=== PATIENT | female | born 1995 | race Hispanic/Latino ===

== ENCOUNTER 2023-10-14 19:31 | Emergency (ER) | payer BC, OTHER ==
[~2023-10-14] VITALS: Ht 154.9 cm; Wt 58.1 kg
[~2023-10-14 19:31] MED LIST: FERR-82 PO; OMEG-116 PO; PREN1TAB80 PO
[2023-10-14 20:02] VITALS: BP 125/75; PULSE 82; RESP 18
[2023-10-14 21:05] LABS: APPEARANCE,URINE CLEAR (CLEAR); BILIRUBIN,URINE NEGATIVE (NEGATIVE); COLOR,URINE LIGHT-YELLOW (YELLOW); GLUCOSE, URINE (UA) NEGATIVE (NEGATIVE); KETONES,URINE NEGATIVE (NEGATIVE); LEUKOCYTE ESTERASE ,URINE NEGATIVE Leu/uL (NEGATIVE); NITRATE,URINE NEGATIVE (NEGATIVE); OCCULT BLOOD,URINE NEGATIVE (NEGATIVE); PH,URINE 6.5 (5.0-8.0); PROTEIN,URINE NEGATIVE (NEGATIVE); UROBILINOGEN,URINE 0.2 mg/dL (0.2-1.0)
[2023-10-14 21:07] LABS: HCG,QUALITATIVE URINE NEGATIVE (NEGATIVE)
[2023-10-14 21:09] LABS: ADD UA MICROSCOPIC NO
[2023-10-14 21:31] LABS: BASOPHILS # (AUTO) 0.06 K/uL (0.00-0.20); BASOPHILS % (AUTO) 0.8 % (0.0-5.0); EOSINOPHILS # (AUTO) 0.12 K/uL (0.00-0.70); EOSINOPHILS % (AUTO) 1.6 % (0.0-8.0); HEMATOCRIT 38.3 % (36-48); IMMATURE GRANULOCYTE ABSOLUTE 0.02 K/uL (0-1); LYMPHOCYTES # (AUTO) 1.8 K/uL (1.0-4.8); MEAN CORPUSCULAR HEMOGLOBIN 29.9 pg (27.0-33.0); MEAN CORPUSCULAR HGB CONC 34.5 g/dL (32.0-36.0); MEAN CORPUSCULAR VOLUME 86.7 fL (79-99); MONOCYTES # (AUTO) 0.7 K/uL (0.1-1.0); MONOCYTES % (AUTO) 8.7 % (3.0-13.0); NEUTROPHILS # (AUTO) 4.8 K/uL (1.8-7.7); NEUTROPHILS % (AUTO) 64.6 % (40.0-77.0); PLATELET COUNT (AUTO) 145 K/uL (130-400); RED BLOOD CELL COUNT(AUTO) 4.42 MIL/uL (4.00-5.50); RED CELL DISTRIBUTION WIDTH 12.8 % (11.0-15.5); WHITE BLOOD COUNT (AUTO) 7.5 K/uL (4.8-10.8)
[2023-10-14 21:43] LABS: CREATININE 0.8 mg/dL (0.5-1.0); POTASSIUM 3.4 mmol/L (3.5-5.1)
[2023-10-14 21:47] LABS: BILIRUBIN,TOTAL 0.5 mg/dL (0.2-1.0); TOTAL PROTEIN, SERUM 7.3 g/dL (6.0-8.3)
[2023-10-14] MEDS: ACETAMINOPHEN 325 MG TAB PO ONE (22:48)
== END 2023-10-14 22:59 | disposition home or self-care (01) ==
LOC: EDH 19:31
DX: R10.31 Right lower quadrant pain (principal)
CPT/HCPCS: 36415; 76856; 80053; 81003; 81025; 83690; 85025

== ENCOUNTER 2024-06-27 23:55 | Emergency (ER) | payer MEDICAID, OTHER ==
[~2024-06-27] VITALS: Ht 154.9 cm; Wt 59.0 kg
[2024-06-27 23:56] VITALS: BP 126/82
--- NOTE | 2024-06-27 23:57 | NUR ---
UA CUP PROVIDED
[2024-06-28] MEDS: acetaMINOPHEN 500 MG TABLET PO ONE (00:29)
[2024-06-28 00:49] LABS: APPEARANCE,URINE CLEAR (CLEAR); BILIRUBIN,URINE NEGATIVE (NEGATIVE); COLOR,URINE COLORLESS (YELLOW); GLUCOSE, URINE (UA) NEGATIVE (NEGATIVE); KETONES,URINE NEGATIVE (NEGATIVE); LEUKOCYTE ESTERASE ,URINE 250 Leu/uL (NEGATIVE); NITRATE,URINE NEGATIVE (NEGATIVE); OCCULT BLOOD,URINE NEGATIVE (NEGATIVE); PROTEIN,URINE NEGATIVE (NEGATIVE); UROBILINOGEN,URINE 0.2 mg/dL (0.2-1.0)
[2024-06-28 00:51] LABS: HCG,QUALITATIVE URINE NEGATIVE (NEGATIVE)
[2024-06-28 00:52] LABS: ADD UA MICROSCOPIC YES
[2024-06-28 00:53] LABS: MUCUS,URINE RARE LPF (None Seen); RBC,URINE 0-1 /HPF (0-1); SQUAMOUS EPITHELIAL CELL,UR RARE /HPF (0-2); WBC,URINE 0-1 /HPF (0-1)
[2024-06-28 01:15] VITALS: TEMP 98.7
[2024-06-28 01:42] LABS: BASOPHILS # (AUTO) 0.06 K/uL (0.00-0.20); BASOPHILS % (AUTO) 0.6 % (0.0-5.0); EOSINOPHILS # (AUTO) 0.13 K/uL (0.00-0.70); EOSINOPHILS % (AUTO) 1.3 % (0.0-8.0); HEMATOCRIT 43.2 % (36-48); IMMATURE GRANULOCYTE ABSOLUTE 0.04 K/uL (0-1); LYMPHOCYTES # (AUTO) 2.5 K/uL (1.0-4.8); MEAN CORPUSCULAR HGB CONC 34.3 g/dL (32.0-36.0); MEAN CORPUSCULAR VOLUME 87.4 fL (79-99); MONOCYTES # (AUTO) 0.8 K/uL (0.1-1.0); MONOCYTES % (AUTO) 7.5 % (3.0-13.0); NEUTROPHILS # (AUTO) 6.5 K/uL (1.8-7.7); NEUTROPHILS % (AUTO) 65.2 % (40.0-77.0); PLATELET COUNT (AUTO) 149 K/uL (130-400); RED BLOOD CELL COUNT(AUTO) 4.94 MIL/uL (4.00-5.50)
[2024-06-28 01:54] LABS: CREATININE 0.7 mg/dL (0.5-1.0); POTASSIUM 3.4 mmol/L (3.5-5.1)
--- NOTE | 2024-06-28 01:55 | ERN ---
ED Note History of Present Illness Stated Complaint: FREQUENT URINATION Chief Complaint: Urinary Frequency Time Seen by MD: 23:57 Time Seen by Midlevel: 23:57 Dictation: The patient is a 29-year-old female who presents to the emergency department with complaints of frequent urination onset this morning. Patient also reports some suprapubic discomfort. Denies any fevers, nausea vomiting or diarrhea. Denies any hematuria or burning urination. Allergies: Coded Allergies: No Allergy Information Available (Verified Allergy, Unknown, 03/22/20) No Known Allergies (Unverified Allergy, Unknown, 03/23/20) Home Meds Reported Medications Ferrous Sulfate (Iron) 325 Mg Tablet, 325 MG PO DAILY, TAB 03/22/20 [place]-3/Dha/Epa/Fish Oil (Fish Oil 500 mg Softgel) 1 Each Capsule, 1 EACH PO DAILY, CAP 03/22/20 Vits W-Ca,Fe,FA(<1Mg) ( Vitamins) 1 Each Tablet, 1 EACH PO DAILY, TAB 03/22/20 Past Medical History Past Medical History: No Pertinent History Surgical History: None LMP: Jun 09, 2024 : 2 Para: 1 Aborts: 1 RN Note Reviewed/Agreed w/PFSH: Yes Review of System Dictation Constitutional: Negative for fever,chills, and weight loss Eyes: Negative for injury, pain,redness, and discharge ENT: Negative for injury,pain or swelling Cardiovascular: Negative for chest pain, palpitations, and edema Respiratory: Negative for shortness of breath, cough, and wheezing, Abdomen/GI: Negative for , nausea, vomiting, diarrhea, and constipation positive for suprapubic discomfort Back: Negative for injury and pain : Negative for injury, bleeding and discharge positive for frequent urination MS/Extremity: Negative for injury and deformity Skin: Negative for rash, and discoloration Neuro: Negative for headache, weakness, numbness, tingling, and seizure Psych: Negative for suicide ideation, homicidal ideation, and hallucinations Initial Vital Sign VS Vital Signs Date Time Temp Pulse Resp B/P (MAP) Pulse Ox O2 Delivery O2 Flow Rate FiO2 06/27/24 23:56 99.5 77 16 126/82 99 Room Air Physical Exam Dictation Vital Signs reviewed General Appearance: Alert, oriented x 3, no acute distress, well developed, nourished. Head and Face: non-traumatic. Eyes: PERRL, pink conjunctivas, eyelid no trauma, anterior chamber with arcus senilis. Ears: Pinnas intact and no signs of trauma or erythema ear canals clear and no discharge TM no erythema Nose: No discharge, no bleeding. Oropharynx: Mouth normal, tongue pink. pharynx clear,no erythema, tonsils no exudates, no abscesses noted, mucous membrane moist Neck: Supple, non-tender, no thyromegaly, no masses, no JVD, no bruits Breast:Deferred Chest:No tenderness, no crepitus, no paradoxical movement, no retractions Lungs:Clear, well-ventilated, symmetric, no rales, no wheezing, no rhonchi, no stridor, good breath sounds bilaterally Heart: Regular rate, regular rhythm, no murmur, no gallops Vascular: no peripheral edema, Abdomen: Soft, positive bowel sounds, nondistended, no guarding, nontender, no rebound, no masses no hepatomegaly, no splenomegaly, no Joyner's sign, no hernias. Rectal: Deferred Genital: Deferred Neurological: Normal speech, motor function intact, sensory function intact Musculoskeletal: Neck nontender, full range of motion, back nontender, full range of motion, Extremities: nontender, full range of motion Skin: Color pink, dry, no turgor, no rash, no lacerations, no abrasions, no contusions. Lymphatic: Deferred Results (Laboratory/Radiology) Laboratory/Radiology Laboratory Tests Test 06/28/24 00:30 06/28/24 01:35 Urine Color COLORLESS (YELLOW) Urine Appearance CLEAR (CLEAR) Urine pH 7.0 (5.0-8.0) Urine Specific [place] 1.009 (1.001-1.031) Urine Protein NEGATIVE mg/dL (NEGATIVE) Urine Glucose (UA) NEGATIVE mg/dL (NEGATIVE) Urine Ketones NEGATIVE mg/dL (NEGATIVE) Urine Occult Blood NEGATIVE (NEGATIVE) Urine Nitrate NEGATIVE (NEGATIVE) Urine Bilirubin NEGATIVE mg/dL (NEGATIVE) Urine Urobilinogen 0.2 mg/dL (0.2-1.0) Urine Leukocyte Esterase 250 Sammie/uL (NEGATIVE) H Urine RBC 0-1 /HPF (0-1) Urine WBC 0-1 /HPF (0-1) Urine Squamous Epithelial Cells RARE /HPF (0-2) Urine Bacteria None /HPF (None Seen) Urine HCG, Qualitative NEGATIVE (NEGATIVE) White Blood Count 10.0 K/uL (4.8-10.8) Red Blood Count 4.94 MIL/uL (4.00-5.50) Hemoglobin 14.8 g/dL (12.0-16.0) Hematocrit 43.2 % (36-48) Mean Corpuscular Volume 87.4 fL (79-99) Mean Corpuscular Hemoglobin 30.0 pg (27.0-33.0) Mean Corpuscular Hemoglobin Concent 34.3 g/dL (32.0-36.0) Red Cell Distribution Width 13.0 % (11.0-15.5) Platelet Count 149 K/uL (130-400) Mean Platelet Volume 11.6 fL (7.5-10.5) H Immature Granulocyte % (Auto) 0.4 % (0-1) Neutrophils (%) (Auto) 65.2 % (40.0-77.0) Lymphocytes (%) (Auto) 25.0 % (21.0-51.0) Monocytes (%) (Auto) 7.5 % (3.0-13.0) Eosinophils (%) (Auto) 1.3 % (0.0-8.0) Basophils (%) (Auto) 0.6 % (0.0-5.0) Neutrophils # (Auto) 6.5 K/uL (1.8-7.7) Lymphocytes # (Auto) 2.5 K/uL (1.0-4.8) Monocytes # (Auto) 0.8 K/uL (0.1-1.0) Eosinophils # (Auto) 0.13 K/uL (0.00-0.70) Basophils # (Auto) 0.06 K/uL (0.00-0.20) Absolute Immature Granulocyte (auto 0.04 K/uL (0-1) Nucleated Red Blood Cells 0.0 % (0.0-0.19) Sodium Level 141 mmol/L (136-145) Potassium Level 3.4 mmol/L (3.5-5.1) L Chloride Level 103 mmol/L (101-111) Carbon Dioxide Level 28 mmol/L (21-32) Blood Urea Nitrogen 8 mg/dL (7-18) Creatinine 0.7 mg/dL (0.5-1.0) Glomerular Filtration Rate Calc 121 mL/min (>90) Random Glucose 89 mg/dL (70-105) Total Calcium 9.3 mg/dL (8.5-10.1) Labs Reviewed?: Yes ED Course ED Course Orders Procedure Category Date Status Time Cbc With Differential LAB 06/28/24 Complete 00:22 ,Urine Test LAB 06/28/24 Complete 00:22 Urinalysis Profile LAB 06/28/24 Complete 00:22 Basic Metabolic Panel LAB 06/28/24 Complete 00:22 Acetaminophen 500mg PHA 06/28/24 Complete Tab (Tylenol 500mg T 00:30 Culture Urine ERIN 06/28/24 In Process 00:52 Ceftriaxone 1g Vial PHA 06/28/24 Complete (Rocephine 1g Inj) 02:00 Current Medications Medications (Trade) Dose Ordered Sig/Fausto Route PRN Reason Start Time Stop Time Status Last Admin Dose Admin Acetaminophen (TYLenol 500MG TAB) 1,000 mg ONCE ONCE PO 06/28/24 00:30 06/28/24 00:31 DC 06/28/24 00:29 Ceftriaxone Sodium (ROCEphine 1G INJ) 1 gm ONCE ONCE IM 06/28/24 02:00 06/28/24 02:01 DC Vital Signs Date Time Temp Pulse Resp B/P (MAP) Pulse Ox O2 Delivery O2 Flow Rate FiO2 06/28/24 00:29 99.5 06/27/24 23:56 99.5 77 16 126/82 99 Room Air Medical Decision Making MDM The patient is a 29-year-old female who presents to the emergency department with complaints of frequent urination onset this morning. Patient also reports some suprapubic discomfort. Denies any fevers, nausea vomiting or diarrhea. Denies any hematuria or burning urination. CBC showed no leukocytosis, no anemia, chemistry showed mild hypokalemia, normal renal function. Urinalysis positive for UTI. Patient will be treated with antibiotics. Patient in no acute distress, nontender abdomen. Agrees to be discharged. Differential diagnosis: UTI, hyperglycemia, electrolyte imbalance, dehydration, sepsis, Need for hospitalization: Patient does not meet criteria for hospitalization. There are no social concerns with this patient. DX & DISP Disposition: Discharge Departure Impression: Primary Impression: UTI (urinary tract infection) Additional Impression: Hypokalemia Condition: Stable Scripts Nitrofurantoin Monohyd/M-Cryst (Macrobid 100 mg Capsule) 100 Mg Capsule 1 CAP PO BID for 5 Days, #10 CAP 0 Refills Prov: BRENDA ARRIOLA 06/28/24 Additional Instructions: FOLLOW-UP WITH PRIMARY CARE PROVIDER IN 1 TO 2 DAYS. TAKE MEDICATIONS DIRECTED HERE IN THE EMERGENCY ROOM. OKAY TO CONTINUE HOME MEDICATIONS UNLESS OTHERWISE DISCUSSED DURING YOUR VISIT IN THE EMERGENCY ROOM TODAY. RETURN TO YOUR NEAREST EMERGENCY ROOM IF SYMPTOMS WORSEN OR IF THERE IS NO IMPROVEMENT. CALL 911 IF YOU NEED IMMEDIATE ASSISTANCE. TAKE TYLENOL OR MOTRIN [id number] NEEDED AND IF NO CONTRAINDICATIONS ARE PRESENT. INCREASE ORAL HYDRATION. A WOUND CULTURE OR URINE CULTURE WAS ORDERED HERE IN THE EMERGENCY ROOM DEPARTMENT PLEASE FOLLOW-UP WITH PRIMARY CARE PROVIDER AND ADVISE THEM TO GET REPEAT PORTS FROM OUR FACILITY. IF YOU HAD ANY CHRISTOPHER WRAP/SPLINTS THAT WERE APPLIED HERE, PLEASE DO NOT REMOVE THEM UNTIL YOU SEE YOUR PRIMARY CARE OR SPECIALTY. Referrals: NONE (PCP) Time of Disposition: 02:02 I have reviewed the case, and I agree with, Diagnosis and Plan BRENDA ARRIOLA Jun 28, 2024 01:55
[2024-06-28] MEDS: cefTRIAXone 1G VIAL IM ONE (02:02)
[2024-06-28] MEDS ORDERED: NITR100C4 PO (02:03)
[2024-06-28 02:06] VITALS: PULSE 81; RESP 18; TEMP 99; O2SAT 99
== END 2024-06-28 02:12 | disposition home or self-care (01) ==
LOC: EDH 23:55
DX: N39.0 Urinary tract infection, site not specified (principal); E87.6 Hypokalemia; Z79.899 Other long term (current) drug therapy
CPT/HCPCS: 99283; 80048; 85025; 87086; 81001; 81025; 36415; 96372; J0696

== ENCOUNTER 2024-12-15 16:26 | Emergency (ER) | payer MEDICAID ==
[~2024-12-15] VITALS: Ht 154.9 cm; Wt 54.4 kg
[~2024-12-15 16:26] MED LIST changes: +NITR100C4 PO
--- NOTE | 2024-12-15 16:46 | ERN ---
ED Note History of Present Illness Stated Complaint: NAUSEA,DIARRHEA,CRAMPS,COLDSWEATS Chief Complaint: Abdominal Pain Time Seen by MD: 16:28 Dictation: PATIENT IS A 29-YEAR-OLD FEMALE COMING IN WITH COMPLAINTS OF EPIGASTRIC PAIN WITH SULFUR TYPE BURPING TASTING FOR THE LAST 3-4 DAYS. NO FEVER NO CHILLS NO DIARRHEA. STATES SHE HAS AN APPOINTMENT WITH THE DOCTOR IN TWO DAYS AND IS UNSURE OF HER STATUS. Allergies: Coded Allergies: No Allergy Information Available (Verified Allergy, Unknown, 03/22/20) No Known Allergies (Unverified Allergy, Unknown, 03/23/20) Home Meds Active Scripts Nitrofurantoin Monohyd/M-Cryst (Macrobid 100 mg Capsule) 100 Mg Capsule, 1 CAP PO BID for 5 Days, #10 CAP 0 Refills Prov:BRENDA ARRIOLA ARCHEOLOGIST 06/28/24 Reported Medications Ferrous Sulfate (Iron) 325 Mg Tablet, 325 MG PO DAILY, TAB 03/22/20 [place]-3/Dha/Epa/Fish Oil (Fish Oil 500 mg Softgel) 1 Each Capsule, 1 EACH PO DAILY, CAP 03/22/20 Vits W-Ca,Fe,FA(<1Mg) ( Vitamins) 1 Each Tablet, 1 EACH PO DAILY, TAB 03/22/20 Past Medical History Past Medical History: Depression Additional Past Medical Hx: ADHD Surgical History: None LMP: November 20, 2024 : 2 Para: 1 Aborts: 1 RN Note Reviewed/Agreed w/PFSH: Yes Review of System Dictation CONSTITUTIONAL: NEGATIVE EXCEPT FOR HPI HEAD/FACE: NEGATIVE EXCEPT FOR HPI EENT: NEGATIVE EXCEPT FOR HPI RESPIRATORY: NEGATIVE EXCEPT FOR HPI GASTROINTESTINAL/ABDOMINAL: NEGATIVE EXCEPT FOR HPI SUPRAPUBIC TENDERNESS NAUSEA GENITOURINARY: NEGATIVE EXCEPT FOR HPI MUSCULOSKELETAL: NEGATIVE EXCEPT FOR HPI INTEGUMENTARY: NEGATIVE EXCEPT FOR HPI NEUROLOGICAL/PSYCH: NEGATIVE EXCEPT FOR HPI HEMATOLOGIC/LYMPHATIC: NEGATIVE EXCEPT FOR HPI ALL SYSTEMS NEGATIVE, EXCEPT NOTED ABOVE. 13 POINT REVIEW OF SYSTEMS ASSESSED AND ALL NEGATIVE EXCEPT FOR ABOVE. Initial Vital Sign VS Vital Signs Date Time Temp Pulse Resp B/P (MAP) Pulse Ox O2 Delivery O2 Flow Rate FiO2 12/15/24 16:36 97.9 110 16 110/83 99 Room Air 0 Physical Exam Dictation VITAL SIGNS REVIEWED GENERAL APPEARANCE: ALERT, ORIENTED X 3, NO ACUTE DISTRESS, WELL DEVELOPED, NOURISHED. HEAD AND FACE: NON-TRAUMATIC. EYES: PERRL, PINK CONJUNCTIVAS, EYELID NO TRAUMA, ANTERIOR CHAMBER WITH ARCUS SENILIS. EARS: PINNAS INTACT AND NO SIGNS OF TRAUMA OR ERYTHEMA EAR CANALS CLEAR AND NO DISCHARGE TM NO ERYTHEMA NOSE: NO DISCHARGE, NO BLEEDING. OROPHARYNX: MOUTH NORMAL, TONGUE PINK, PHARYNX CLEAR,NO ERYTHEMA, TONSILS NO EXUDATES, NO ABSCESSES NOTED, MUCOUS MEMBRANE MOIST NECK: SUPPLE, NON-TENDER, NO THYROMEGALY, NO MASSES, NO JVD, NO BRUITS BREAST:DEFERRED CHEST:NO TENDERNESS, NO CREPITUS, NO PARADOXICAL MOVEMENT, NO RETRACTIONS LUNGS:CLEAR, WELL-VENTILATED, SYMMETRIC, NO RALES, NO WHEEZING, NO RHONCHI, NO STRIDOR, GOOD BREATH SOUNDS BILATERALLY HEART: REGULAR RATE, REGULAR RHYTHM, NO MURMUR, NO GALLOPS VASCULAR: NO PERIPHERAL EDEMA, ABDOMEN: SOFT, POSITIVE BOWEL SOUNDS, NONDISTENDED, NO GUARDING, MILD SUPRAPUBIC TENDERNESS. NEGATIVE MCBURNEY'S PAIN OR PERIUMBILICAL PAIN NO REBOUND TENDERNESS. NEGATIVE CVAT RECTAL: DEFERRED GENITAL: DEFERRED NEUROLOGICAL: NORMAL SPEECH, MOTOR FUNCTION INTACT, SENSORY FUNCTION INTACT MUSCULOSKELETAL: NECK NONTENDER, FULL RANGE OF MOTION, BACK NONTENDER, FULL RANGE OF MOTION, EXTREMITIES: NONTENDER, FULL RANGE OF MOTION SKIN: COLOR PINK, DRY, NO TURGOR, NO RASH, NO LACERATIONS, NO ABRASIONS, NO CONTUSIONS. LYMPHATIC: DEFERRED Results (Laboratory/Radiology) Laboratory/Radiology Laboratory Tests Test 12/15/24 17:12 12/15/24 17:17 Urine Color YELLOW (YELLOW) Urine Appearance CLOUDY (CLEAR) H Urine pH 6.0 (5.0-8.0) Urine Specific [place] 1.032 (1.001-1.031) Urine Protein 30 mg/dL (NEGATIVE) H Urine Glucose (UA) NEGATIVE mg/dL (NEGATIVE) Urine Ketones 20 mg/dL (NEGATIVE) H Urine Occult Blood MODERATE (NEGATIVE) H Urine Nitrate NEGATIVE (NEGATIVE) Urine Bilirubin NEGATIVE mg/dL (NEGATIVE) Urine Urobilinogen 2.0 mg/dL (0.2-1.0) H Urine Leukocyte Esterase 250 Sammie/uL (NEGATIVE) H Urine RBC 6-10 /HPF (0-1) H Urine WBC 11-25 /HPF (0-1) H Urine Squamous Epithelial Cells FEW /HPF (0-2) Urine Bacteria RARE /HPF (None Seen) Urine Other Casts 5 /LPF (None Seen) Urine HCG, Qualitative NEGATIVE (NEGATIVE) White Blood Count 16.0 K/uL (4.8-10.8) H Red Blood Count 5.23 MIL/uL (4.00-5.50) Hemoglobin 15.7 g/dL (12.0-16.0) Hematocrit 45.8 % (36-48) Mean Corpuscular Volume 87.6 fL (79-99) Mean Corpuscular Hemoglobin 30.0 pg (27.0-33.0) Mean Corpuscular Hemoglobin Concent 34.3 g/dL (32.0-36.0) Red Cell Distribution Width 12.8 % (11.0-15.5) Platelet Count 187 K/uL (130-400) Mean Platelet Volume 11.4 fL (7.5-10.5) H Immature Granulocyte % (Auto) 0.3 % (0-1) Neutrophils (%) (Auto) 83.7 % (40.0-77.0) H Lymphocytes (%) (Auto) 7.3 % (21.0-51.0) L Monocytes (%) (Auto) 7.4 % (3.0-13.0) Eosinophils (%) (Auto) 0.9 % (0.0-8.0) Basophils (%) (Auto) 0.4 % (0.0-5.0) Neutrophils # (Auto) 13.4 K/uL (1.8-7.7) H Lymphocytes # (Auto) 1.2 K/uL (1.0-4.8) Monocytes # (Auto) 1.2 K/uL (0.1-1.0) H Eosinophils # (Auto) 0.14 K/uL (0.00-0.70) Basophils # (Auto) 0.07 K/uL (0.00-0.20) Absolute Immature Granulocyte (auto 0.04 K/uL (0-1) Nucleated Red Blood Cells 0.0 % (0.0-0.19) White Cell Morphology Comment See comments Sodium Level 139 mmol/L (136-145) Potassium Level 3.9 mmol/L (3.5-5.1) Chloride Level 102 mmol/L (101-111) Carbon Dioxide Level 28 mmol/L (21-32) Blood Urea Nitrogen 12 mg/dL (7-18) Creatinine 0.8 mg/dL (0.5-1.0) Glomerular Filtration Rate Calc 104 mL/min (>90) Random Glucose 87 mg/dL (70-105) Total Calcium 9.2 mg/dL (8.5-10.1) Lipase 26 U/L (16-77) Labs Reviewed?: Yes ED Course ED Course Orders Procedure Category Date Status Time Cbc With Differential LAB 12/15/24 Complete 16:44 ,Urine Test LAB 12/15/24 Complete 16:44 Urinalysis Profile LAB 12/15/24 Complete 16:44 Famotidine 20mg Tab PHA 12/15/24 In Process (Pepcid 20mg Tab) 17:00 Lipase LAB 12/15/24 Complete 16:44 Basic Metabolic Panel LAB 12/15/24 Complete 16:44 Culture Urine ERIN 12/15/24 In Process 17:40 Amox/Clav 875/125mg PHA 12/15/24 Transmitted Tab (Augmentin 875-1 20:00 Current Medications Medications (Trade) Dose Ordered Sig/Fausto Route PRN Reason Start Time Stop Time Status Last Admin Dose Admin Famotidine (Pepcid 20mg Tab) 20 mg ONCE PO 12/15/24 17:00 12/15/24 21:00 12/15/24 19:31 Vital Signs Date Time Temp Pulse Resp B/P (MAP) Pulse Ox O2 Delivery O2 Flow Rate FiO2 12/15/24 16:36 97.9 110 16 110/83 99 Room Air 0 2000/SPOKE TO PATIENT AT LENGTH REGARDING FINDINGS OF LABS. SHE REMAINS TENDER TO SUPRAPUBIC AREA ONLY SHE IS AWARE THAT THERE WAS NO AND TOLD ME THAT SHE STARTED HER PERIOD WHILE SHE WAS HERE TODAY. SHE WILL BE TREATED FOR ACUTE URINARY TRACT INFECTION WITH AUGMENTIN AND DISCHARGED TO FOLLOW UP WITH HER DOCTOR AND KEEP HER APPOINTMENT WITH HIM ON SUNDAY. NO PERIUMBILICAL OR RIGHT LOWER QUADRANT PAIN TENDERNESS OR REBOUND TENDERNESS Medical Decision Making MDM MEDICAL DISCHARGE MAKING BASED ON BASIC LABS FOR ABDOMINAL PAIN. PATIENT HAS LEUKOCYTOSIS HOWEVER REMAINDER OF LABS ARE UNREMARKABLE EXCEPT FOR URINE AND SHE HAS A CYSTITIS WITH HEMATURIA. ALSO SHE HAD A NEW ONSET OF EMESIS TODAY WHILE AT THE EMERGENCY ROOM. DISCHARGED HOME WITH THE AUGMENTIN AND ZOFRAN AND IBUPROFEN TOLD TO SEE HER DOCTOR SUNDAY DX & DISP Disposition: Discharge Departure Impression: Primary Impression: Hematuria due to cystitis Additional Impressions: Nausea & vomiting, Menses painful Condition: Stable Scripts Ibuprofen (Ibuprofen) 600 Mg Tablet 600 MG PO Q6H PRN for PAIN, #30 TAB Prov: SAHRA HILLIARD NP 12/15/24 Ondansetron (Ondansetron Odt) 4 Mg Tab.rapdis 4 MG PO Q6HPRN PRN for nausea, #16 TAB 0 Refills Prov: SAHRA HILLIARD NP 12/15/24 Amoxicillin/Potassium Clav (Amox Tr-K Clv 875-125 mg Tab) 875 Mg-125 Mg Tablet 1 EACH PO BID for 7 Days, #14 TAB 0 Refills Prov: SAHRA HILLIARD NP 12/15/24 Additional Instructions: FOLLOW-UP WITH PRIMARY CARE PROVIDER IN 1 TO 2 DAYS. TAKE MEDICATIONS DIRECTED HERE IN THE EMERGENCY ROOM. OKAY TO CONTINUE HOME MEDICATIONS UNLESS OTHERWISE DISCUSSED DURING YOUR VISIT IN THE EMERGENCY ROOM TODAY. RETURN TO YOUR NEAREST EMERGENCY ROOM IF SYMPTOMS WORSEN OR IF THERE IS NO IMPROVEMENT. CALL 911 IF YOU NEED IMMEDIATE ASSISTANCE. TAKE TYLENOL OR MOTRIN [id number] NEEDED AND IF NO CONTRAINDICATIONS ARE PRESENT. INCREASE ORAL HYDRATION. A WOUND CULTURE OR URINE CULTURE WAS ORDERED HERE IN THE EMERGENCY ROOM DEPARTMENT PLEASE FOLLOW-UP WITH PRIMARY CARE PROVIDER AND ADVISE THEM TO GET REPEAT PORTS FROM OUR FACILITY. IF YOU HAD ANY CHRISTOPHER WRAP/SPLINTS THAT WERE APPLIED HERE, PLEASE DO NOT REMOVE THEM UNTIL YOU SEE YOUR PRIMARY CARE OR SPECIALTY. TAKE ANTIBIOTICS DIRECTED UNTIL GONE. , INCREASE YOUR WATER INTAKE. , SEE YOUR PRIMARY CARE DOCTOR AND KEEP YOUR APPOINTMENT ON SUNDAY FOR FOLLOW UP AND MANAGEMENT Referrals: SELF,REFERRAL (PCP) Time of Disposition: 20:04 I have reviewed the case, and I agree with, Diagnosis and Plan SAHRA HILLIARD NP Dec 15, 2024 16:46
[2024-12-15 17:33] LABS: BASOPHILS # (AUTO) 0.07 K/uL (0.00-0.20); BASOPHILS % (AUTO) 0.4 % (0.0-5.0); EOSINOPHILS # (AUTO) 0.14 K/uL (0.00-0.70); EOSINOPHILS % (AUTO) 0.9 % (0.0-8.0); HEMATOCRIT 45.8 % (36-48); IMMATURE GRANULOCYTE ABSOLUTE 0.04 K/uL (0-1); LYMPHOCYTES # (AUTO) 1.2 K/uL (1.0-4.8); LYMPHOCYTES % (AUTO) 7.3 % (21.0-51.0); MEAN CORPUSCULAR HGB CONC 34.3 g/dL (32.0-36.0); MEAN CORPUSCULAR VOLUME 87.6 fL (79-99); MONOCYTES # (AUTO) 1.2 K/uL (0.1-1.0); MONOCYTES % (AUTO) 7.4 % (3.0-13.0); NEUTROPHILS # (AUTO) 13.4 K/uL (1.8-7.7); NEUTROPHILS % (AUTO) 83.7 % (40.0-77.0); PLATELET COUNT (AUTO) 187 K/uL (130-400); RED BLOOD CELL COUNT(AUTO) 5.23 MIL/uL (4.00-5.50); RED CELL DISTRIBUTION WIDTH 12.8 % (11.0-15.5)
[2024-12-15 17:33] LABS: APPEARANCE,URINE CLOUDY (CLEAR); BILIRUBIN,URINE NEGATIVE (NEGATIVE); COLOR,URINE YELLOW (YELLOW); GLUCOSE, URINE (UA) NEGATIVE (NEGATIVE); KETONES,URINE 20 mg/dL (NEGATIVE); LEUKOCYTE ESTERASE ,URINE 250 Leu/uL (NEGATIVE); NITRATE,URINE NEGATIVE (NEGATIVE); OCCULT BLOOD,URINE MODERATE (NEGATIVE); PROTEIN,URINE 30 mg/dL (NEGATIVE)
[2024-12-15 17:35] LABS: HCG,QUALITATIVE URINE NEGATIVE (NEGATIVE)
[2024-12-15 17:36] LABS: ADD UA MICROSCOPIC YES
[2024-12-15 17:39] LABS: CREATININE 0.8 mg/dL (0.5-1.0); POTASSIUM 3.9 mmol/L (3.5-5.1)
[2024-12-15 17:47] LABS: BACTERIA,URINE RARE /HPF (None Seen); MUCUS,URINE FEW LPF (None Seen); OTHER CASTS, URINE 5 /LPF (None Seen); SQUAMOUS EPITHELIAL CELL,UR FEW /HPF (0-2)
[2024-12-15] MEDS: FAMOTIDINE 20MG TAB PO SCH (19:31)
[2024-12-15] MEDS ORDERED: IBUP-2070 PO (20:07)
[2024-12-15] MEDS ORDERED: AMOX1TAB16 PO (20:07)
[2024-12-15] MEDS ORDERED: ONDA-243 PO (20:07)
[2024-12-15] MEDS: AMOX/CLAV 875/125MG TAB PO SCH (20:09)
[2024-12-15 20:17] VITALS: BP 112/79; PULSE 98; RESP 18; TEMP 98.2; O2SAT 99
== END 2024-12-15 20:17 | disposition home or self-care (01) ==
LOC: EDH 16:26
DX: N30.91 Cystitis, unspecified with hematuria (principal); R11.2 Nausea with vomiting, unspecified; N94.6 Dysmenorrhea, unspecified
CPT/HCPCS: 36415; 80048; 81001; 81025; 83690; 85025; 87086; 99283